=== PATIENT | female | born 1990 | race Caucasian/White ===

== ENCOUNTER 2019-05-19 17:15 | Emergency (ER) | payer OTHER ==
[~2019-05-19] VITALS: Ht 152.4 cm; Wt 107.0 kg
[2019-05-19 17:17] VITALS: BP 125/79
[2019-05-19] MEDS: NACL 0.9% 1,000 ML IV ONE (18:23)
[2019-05-19] MEDS: KETOROLAC 30 MG/ML VIAL IVP ONE (18:24)
[2019-05-19 18:47] LABS: BASOPHILS # (AUTO) 0.1 K/uL (0.00-0.22); BASOPHILS % (AUTO) 0.6 % (0.0-2.0); EOSINOPHILS # (AUTO) 0.3 K/uL (0-0.4); EOSINOPHILS % (AUTO) 2.7 % (0.0-4.0); HEMATOCRIT 41.1 % (36-48); HEMOGLOBIN 13.3 g/dL (12.0-16.0); LYMPHOCYTES # (AUTO) 3.3 K/uL (2.5-16.5); LYMPHOCYTES % (AUTO) 32.5 % (20.5-51.1); MEAN CORPUSCULAR HEMOGLOBIN 28 pg (27-31); MEAN CORPUSCULAR HGB CONC 32 g/dL (33-37); MEAN CORPUSCULAR VOLUME 87.5 fL (80-94); MONOCYTES # (AUTO) 0.8 K/uL (0.8-1.0); MONOCYTES % (AUTO) 7.3 % (1.7-9.3); NEUTROPHILS # (AUTO) 5.8 K/uL (1.8-7.7); NEUTROPHILS % (AUTO) 56.9 % (42.2-75.2); PLATELET COUNT (AUTO) 226 K/uL (140-450); RED CELL DISTRIBUTION WIDTH 13.6 % (11.6-13.7); WHITE BLOOD COUNT (AUTO) 10.3 K/uL (4.8-10.8)
[2019-05-19 19:02] LABS: ANION GAP 14.1 (8-16); CREATININE 0.6 mg/dL (0.6-1.3); POTASSIUM 4.1 mmol/L (3.5-5.1)
[2019-05-19 19:09] LABS: ALBUMIN 3.3 g/dL (3.4-5.0); TOTAL BILIRUBIN 0.5 mg/dL (0.0-1.0)
[2019-05-19] MEDS: MECLIZINE 25 MG TAB PO ONE (19:28)
[2019-05-19 19:50] VITALS: BP 101/50
[2019-05-19 20:33] LABS: APPEARANCE,URINE CLEAR (CLEAR); BILIRUBIN,URINE NEGATIVE (NEGATIVE); BLOOD, URINE NEGATIVE (NEGATIVE); COLOR,URINE YELLOW (YELLOW); LEUKOCYTE ESTERASE ,URINE NEGATIVE (NEGATIVE); NITRITE, URINE NEGATIVE (NEGATIVE); UGLUCOSE NEGATIVE (NEGATIVE)
== END 2019-05-19 19:50 | disposition home or self-care (01) ==
LOC: MED 17:15
DX: R74.0 Nonspecific elevation of levels of transaminase and lactic acid dehydrogenase [LDH] (principal); R51 Headache; R11.2 Nausea with vomiting, unspecified; H92.09 Otalgia, unspecified ear; Z86.39 Personal history of other endocrine, nutritional and metabolic disease
CPT/HCPCS: 36415; 70450; 80053; 81003; 81025; 85025; 93005; 96361; 96374; 99284; J1885; J7030; J8597

== ENCOUNTER 2019-06-20 10:29 | Emergency (ER) | payer OTHER ==
[~2019-06-20] VITALS: Ht 152.4 cm; Wt 108.9 kg
[2019-06-20 10:36] VITALS: BP 120/72
--- NOTE | 2019-06-20 10:46 | NUR ---
Patient ambulated to bed 6. RN evaluating patient at bedside.
--- NOTE | 2019-06-20 11:26 | NUR ---
PATIENT PRESENTS TO ED WITH HEADACHE SINCE THURSDAY. PT HAS 10/10 PAIN WHICH SHE DESCRIBES SHARP, THROBBING AND RADIATING TO HER FACE. PT TOOK TYLENOL WHICH PROVIDED NO RELIEF. PT IS AAO X4, WITH PERRL. -BOV, -DIZZINESS, -VOMITING, -FEVER, -COUGH, -COLDS. VSS; PATIENT POSITIONED FOR COMFORT; HOB ELEVATED; BEDRAILS UP X2; BED DOWN. ER MD MADE AWARE OF PT STATUS. PMH: HYPERTHYROID, HTN MEDS: NONE ALLERGIES: PENICILLIN
--- NOTE | 2019-06-20 11:39 | NUR ---
Dr. Garrett is evaluating the patient at bedside.
[2019-06-20] MEDS ORDERED: ONDANSETRON 4 MG ODT PO ONE (11:45)
[2019-06-20] MEDS ORDERED: LIDOCAINE MPF 1% 10 MG/ML VIAL INJ ONE (11:45)
--- NOTE | 2019-06-20 12:12 | NUR ---
Dr. Garrett is re-evaluating the patient at bedside.
[2019-06-20 13:17] VITALS: BP 120/72
== END 2019-06-20 13:18 | disposition home or self-care (01) ==
LOC: MED 10:29
DX: G44.209 Tension-type headache, unspecified, not intractable (principal); Z86.39 Personal history of other endocrine, nutritional and metabolic disease; Z88.0 Allergy status to penicillin
CPT/HCPCS: 99283; J2001; Q0162

== ENCOUNTER 2019-10-01 12:44 | Emergency (ER) | payer OTHER ==
[~2019-10-01] VITALS: Ht 152.4 cm; Wt 107.2 kg
[2019-10-01 12:55] VITALS: BP 123/82
--- NOTE | 2019-10-01 13:12 | NUR ---
29 Y/O FEMALE C/O COUGH, CONGESTION, LT EAR PAIN X 3 DAYS. PT STATES 10/10 CHEST PAIN PROVOKED BY COUGH. RR EVEN AND UNLABORED. PRODUCTIVE, MOIST COUGH NOTED. DENIES DRAINAGE FROM EAR. PT STATES SHE HAS NOT TAKEN ANY MEDICATION. DENIES FEVER/N/V/D. PT LAYING IN BED POSITIONED FOR COMFORT. X 1 SIDE RAIL RAISED. VSS MEDHX: DENIES ALLERGIES: PENICILLIN
[2019-10-01] MEDS ORDERED: KETOROLAC 60 MG/2 ML VIAL IM ONE (13:20)
--- NOTE | 2019-10-01 13:40 | NUR ---
technical laboratory asst at bedside.
--- NOTE | 2019-10-01 13:42 | NUR ---
INFLUENZA SWAB COLLECTED, PT STATES SHE IS UNABLE TO GIVE URINE AT THIS TIME AND WILL TRY SHORTLY. WILL FOLLOW UP.
[2019-10-01] MEDS ORDERED: ACETAMINOPHEN EXTRA STRENGTH 500 MG TAB PO ONE (14:20)
[2019-10-01 14:29] VITALS: BP 123/82
--- NOTE | 2019-10-01 14:29 | NUR ---
Patient discharged with v/s stable. Written and verbal after care instructions given and explained. Patient alert, oriented and verbalized understanding of instructions. Ambulatory with steady gait. All questions addressed prior to discharge. ID band removed. Patient advised to follow up with PMD. Rx of TYLENOL, PROMETHAZINE, AND TAMIFLU given. Patient educated on indication of medication including possible reaction and side effects. Opportunity to ask questions provided and answered.
== END 2019-10-01 14:29 | disposition home or self-care (01) ==
LOC: MED 12:44
DX: J10.1 Influenza due to other identified influenza virus with other respiratory manifestations (principal); I10 Essential (primary) hypertension; E07.9 Disorder of thyroid, unspecified
CPT/HCPCS: 71045; 87804; 96372; 99284; J1885; Q0092

== ENCOUNTER 2020-03-02 07:44 | Emergency (ER) | payer OTHER ==
[~2020-03-02] VITALS: Ht 154.9 cm; Wt 110.2 kg
[2020-03-02 07:49] VITALS: BP 114/76
--- NOTE | 2020-03-02 08:09 | NUR ---
29 Y/O FEMALE C/O ONE EPISODE OF VAGINAL BLEEDING LAST NIGHT S/P VAGINAL INTERCOURSE WELL TRANSVAGINAL US YESTERDAY IN CLINIC. PT STATES WHEN SHE WENT TO THAT BATHROOM AFTER INTERCOURSE SHE SAW BLOOD IN THE TOILET AND WHEN SHE WIPED. DENIES SEEING ANY CLOTS. PT IS NOT ACTIVELY BLEEDING. STATES SHE HAS 3/10 PELVIC CRAMPING, BUT HAS BEEN CRAMPING THROUGHOUT . DENIES ANY N/V/D. RESP EVEN AND UNLABORED. PMH: HTN ALLERGIES: PENICILLIN
--- NOTE | 2020-03-02 08:16 | NUR ---
ULTRASOUND AT BEDSIDE
[2020-03-02 08:19] LABS: BASOPHILS % (AUTO) 0.4 % (0.0-2.0); EOSINOPHILS # (AUTO) 0.1 K/uL (0-0.4); EOSINOPHILS % (AUTO) 1.4 % (0.0-4.0); HEMOGLOBIN 13.6 g/dL (12.0-16.0); LYMPHOCYTES # (AUTO) 1.8 K/uL (2.5-16.5); LYMPHOCYTES % (AUTO) 23.8 % (20.5-51.1); MEAN CORPUSCULAR HEMOGLOBIN 28 pg (27-31); MEAN CORPUSCULAR HGB CONC 32 g/dL (33-37); MEAN CORPUSCULAR VOLUME 87.9 fL (80-94); MONOCYTES # (AUTO) 0.5 K/uL (0.8-1.0); MONOCYTES % (AUTO) 6.6 % (1.7-9.3); NEUTROPHILS # (AUTO) 5.3 K/uL (1.8-7.7); NEUTROPHILS % (AUTO) 67.8 % (42.2-75.2); PLATELET COUNT (AUTO) 231 K/uL (140-450); RED BLOOD CELL COUNT(AUTO) 4.78 MIL/uL (4.20-5.40); RED CELL DISTRIBUTION WIDTH 14.3 % (11.6-13.7); WHITE BLOOD COUNT (AUTO) 7.7 K/uL (4.8-10.8)
[2020-03-02 08:41] LABS: ANION GAP 12.5 (8-16); CARBON DIOXIDE 26.6 mmol/L (21-32); CREATININE 0.7 mg/dL (0.6-1.3); POTASSIUM 4.1 mmol/L (3.5-5.1)
[2020-03-02 08:52] LABS: ALBUMIN 3.2 g/dL (3.4-5.0); TOTAL BILIRUBIN 0.9 mg/dL (0.0-1.0)
[2020-03-02 09:13] LABS: APPEARANCE,URINE SL CLOUDY (CLEAR); BILIRUBIN,URINE NEGATIVE (NEGATIVE); BLOOD, URINE TRACE-I (NEGATIVE); COLOR,URINE YELLOW (YELLOW); LEUKOCYTE ESTERASE ,URINE NEGATIVE (NEGATIVE); NITRITE, URINE NEGATIVE (NEGATIVE); PH,URINE 6.5 (5.0-9.0); UGLUCOSE NEGATIVE (NEGATIVE)
[2020-03-02 09:41] VITALS: BP 114/76
--- NOTE | 2020-03-02 09:42 | NUR ---
Patient discharged with v/s stable. Written and verbal after care instructions given and explained. Patient verbalized understanding. Ambulatory with steady gait. All questions addressed prior to discharge. Advised to follow up with PMD.
[2020-03-02 10:51] LABS: RBC,URINE 0-5 /HPF (0-5); WBC,URINE 0 /HPF (0-5)
== END 2020-03-02 09:42 | disposition home or self-care (01) ==
LOC: MED 07:44
DX: O20.0 Threatened abortion (principal); Z3A.01 Less than 8 weeks gestation of pregnancy; I10 Essential (primary) hypertension; E07.9 Disorder of thyroid, unspecified; Z88.0 Allergy status to penicillin
CPT/HCPCS: 36415; 76817; 80053; 81001; 84702; 85025; 86900; 86901; 99284; Q0092

== ENCOUNTER 2021-02-25 09:07 | Emergency (ER) | payer OTHER ==
[~2021-02-25] VITALS: Ht 154.9 cm; Wt 112.9 kg
[2021-02-25 09:12] VITALS: BP 116/76
--- NOTE | 2021-02-25 09:19 | NUR ---
Patient ambulated to bed 12
--- NOTE | 2021-02-25 09:31 | NUR ---
30/F presents to ED with c/o heavy menstrual bleeding and cramping. Patient states for the past 3 weeks she has had 8/10 constant lower abdominal pain. Patient states yesterday she began her period and noticed throughout the day was progressively bleeding heavier. Patient states she went through "multiple pads and tampons" and noticed many "blood clots" stating it was not normal for her. States she has been feeling fatigued since yesterday. Patient states she has been taking Tylenol at home for the abdominal cramping with mild relief. Patient alert and oriented x4, answering questions appropriately, placed in Dr. Jamie cohen bedside.
--- NOTE | 2021-02-25 10:09 | NUR ---
Stood in as female Environmental Protection Geologist for Dr. Ayala, accompanied female patient for Pelvic Exam.
--- NOTE | 2021-02-25 10:50 | NUR ---
Ultrasound at bedside.
[2021-02-25 10:53] LABS: BASOPHILS # (AUTO) 0.1 K/uL (0.00-0.22); BASOPHILS % (AUTO) 0.7 % (0.0-2.0); EOSINOPHILS # (AUTO) 0.2 K/uL (0-0.4); EOSINOPHILS % (AUTO) 2.5 % (0.0-4.0); HEMATOCRIT 40.1 % (36-48); LYMPHOCYTES # (AUTO) 2.2 K/uL (2.5-16.5); LYMPHOCYTES % (AUTO) 30.3 % (20.5-51.1); MEAN CORPUSCULAR HEMOGLOBIN 29 pg (27-31); MEAN CORPUSCULAR HGB CONC 33 g/dL (33-37); MEAN CORPUSCULAR VOLUME 88.9 fL (80-94); MONOCYTES # (AUTO) 0.5 K/uL (0.8-1.0); MONOCYTES % (AUTO) 7.2 % (1.7-9.3); NEUTROPHILS # (AUTO) 4.2 K/uL (1.8-7.7); NEUTROPHILS % (AUTO) 59.3 % (42.2-75.2); PLATELET COUNT (AUTO) 212 K/uL (140-450); RED BLOOD CELL COUNT(AUTO) 4.51 MIL/uL (4.20-5.40); RED CELL DISTRIBUTION WIDTH 14.7 % (11.6-13.7); WHITE BLOOD COUNT (AUTO) 7.1 K/uL (4.8-10.8)
[2021-02-25 11:15] LABS: FREE T4 (FREE THYROXINE) 0.94 ng/dL (0.76-1.46); THYROID STIMULATING HORMONE 1.24 uIU/mL (0.34-3.74)
[2021-02-25] MEDS ORDERED: NAPR-54 PO (12:36)
[2021-02-25 12:54] VITALS: BP 102/53
== END 2021-02-25 12:55 | disposition home or self-care (01) ==
LOC: MED 09:07
DX: N92.0 Excessive and frequent menstruation with regular cycle (principal); I10 Essential (primary) hypertension; E07.9 Disorder of thyroid, unspecified
CPT/HCPCS: 36415; 76856; 81002; 81025; 84439; 84443; 85025; 99284

== ENCOUNTER 2023-02-27 08:46 | Emergency (ER) | payer BC, OTHER ==
[~2023-02-27] VITALS: Ht 162.6 cm; Wt 86.2 kg
[~2023-02-27 08:46] MED LIST: NAPR-54 PO
[2023-02-27 09:11] VITALS: BP 128/70; PULSE 77; RESP 17; TEMP 97.4; O2SAT 98
[2023-02-27] MEDS ORDERED: PRED20TA5 PO ×2 (10:27→10:50)
[2023-02-27] MEDS ORDERED: HYDR-636 PO ×2 (10:27→10:50)
[2023-02-27] MEDS ORDERED: KETO120S5 TP ×2 (10:27→10:50)
--- NOTE | 2023-02-27 10:55 | NUR ---
PT WAS EXAMINE AND DC BY DR NUNES
--- NOTE | 2023-02-27 10:56 | NUR ---
Patient discharged with v/s stable. Written and verbal after care instructions given and explained. Patient alert, oriented and verbalized understanding of instructions. Ambulatory with to home. All questions addressed prior to discharge. ID band removed. Patient advised to follow up with PMD. Rx of given. Patient educated on indication of medication including possible reaction and side effects. Opportunity to ask questions provided and answered.
== END 2023-02-27 10:56 | disposition home or self-care (01) ==
LOC: MED 08:46
DX: B35.0 Tinea barbae and tinea capitis (principal); L20.9 Atopic dermatitis, unspecified; I10 Essential (primary) hypertension; E07.9 Disorder of thyroid, unspecified; Z88.0 Allergy status to penicillin; Z79.899 Other long term (current) drug therapy
CPT/HCPCS: 82948; 99283

== ENCOUNTER 2023-07-09 10:06 | Emergency (ER) | payer BC, OTHER ==
[~2023-07-09] VITALS: Ht 154.9 cm; Wt 104.3 kg
[~2023-07-09 10:06] MED LIST changes: +HYDR-636 PO; +KETO120S5 TP; +PRED20TA5 PO
[2023-07-09 10:11] VITALS: BP 99/80; PULSE 80; RESP 14; TEMP 98; O2SAT 98
[2023-07-09] MEDS ORDERED: KETOROLAC 60 MG/2 ML VIAL IM ONE (11:00)
[2023-07-09] MEDS ORDERED: ACET-8905 PO (11:05)
[2023-07-09] MEDS ORDERED: IBUP-2213 PO (11:05)
[2023-07-09 11:08] VITALS: O2SAT 98
[2023-07-09 11:38] VITALS: BP 99/80; PULSE 80; RESP 14; TEMP 98; O2SAT 98
== END 2023-07-09 11:38 | disposition home or self-care (01) ==
LOC: MED 10:06
DX: R10.30 Lower abdominal pain, unspecified (principal); I10 Essential (primary) hypertension; Z86.39 Personal history of other endocrine, nutritional and metabolic disease; Z98.890 Other specified postprocedural states; Z79.899 Other long term (current) drug therapy; Z79.1 Long term (current) use of non-steroidal anti-inflammatories (NSAID); Z88.0 Allergy status to penicillin
CPT/HCPCS: 81002; 81025; 96372; 99283; J1885